=== PATIENT | male | born 1945 | race Caucasian/White ===

== ENCOUNTER 2017-10-07 15:11 | Emergency (ER) | payer MEDICARE, OTHER ==
[2017-10-07 15:44] LABS: BILIRUBIN,URINE NEGATIVE (NEG); CLARITY,URINE CLEAR; COLOR,URINE YELLOW; GLUCOSE,URINE NEGATIVE (NEG); NITRITE,URINE NEGATIVE (NEG); PROTEIN,URINE NEGATIVE (NEG-TRACE)
[2017-10-07 15:55] LABS: BACTERIA,URINE 0 /HPF (0-FEW); RBC,URINE >40 /HPF (0-2); SQUAMOUS EPITHELIAL CELL,UR FEW /LPF; WBC,URINE >40 /HPF (0-4)
[2017-10-07] MEDS: cefTRIAXone IM 1 GM VIAL IM (16:27)
== END 2017-10-07 16:45 | disposition home or self-care (01) ==
LOC: ER 16:45
DX: N39.0 Urinary tract infection, site not specified (principal); I10 Essential (primary) hypertension; E11.9 Type 2 diabetes mellitus without complications; Z88.2 Allergy status to sulfonamides
CPT/HCPCS: 81001; 96372; 99283; J0696

== ENCOUNTER 2021-09-12 11:34 | Emergency (ER) | payer MEDICARE, OTHER ==
[~2021-09-12] VITALS: Ht 177.8 cm; Wt 98.0 kg
[~2021-09-12 11:34] MED LIST: LEVO750T31 PO
--- NOTE | 2021-09-12 12:47 | RAD ---
EXAMINATION: CT LUMBAR SPINE WO. Technique: Axial images with coronal and sagittal reconstructions are performed of lumbar spine witho ut contrast. One or more of the following radiation dose reduction techniques was used: automated exposure control , adjustment of mA and/or KV according to patient size, and/or utilization of iterative reconstructio n technique. HISTORY: 76 years Male Reason: FALL, SCIATICA, BACK PAIN COMPARISON: None. FINDINGS: There is a minimal spondylolisthesis of L4 over L5. The vertebral body heights are preserved. There i s a a detached osteophyte along the right side the of the anterior aspect of the L4 vertebral body wh ich may represent a fractured osteophyte secondary to the injury. There is no associated compression fracture. The posterior elements appear to be intact. There is no other fracture identified. There is fusion of the SI joints bilaterally. There are significant sclerotic hypertrophic changes in the mid and lower lumbar spine facet joints. This is associated with multilevel bilateral foraminal stenosis of moderate to severe degree bilatera lly. There is suggestion of prior laminectomy The paraspinal soft tissues appear grossly unremarkable. IMPRESSION: 1. Detached osteophyte along the anterior aspect of the L4 vertebral upper endplate is probably acute with no lumbar spine fractures seen otherwise. 2. Severe facet joint hypertrophy at multiple levels in the lower lumbar spine with multilevel bilate ral neural foraminal stenosis.. 3. Grade 1 spondylolisthesis of L4 over L5. Electronically signed by: Zachary Malik MD (09/12/2021 12:45 PM) [id number]
--- NOTE | 2021-09-12 13:18 | RAD ---
EXAMINATION: XR RIGHT HIP (WITH OR WITHOUT PELVIS) 2 VIEWS. HISTORY: 76 years Male Reason: PAIN AFTER TBLE FELL ON IT COMPARISON: None. FINDINGS: No fracture, dislocation or radiopaque foreign body seen on the AP pelvis or right 2 views of the rig ht hip. Mild sclerotic degenerative changes at the hip joints and SI joints seen. Multiple calcifi cations projecting over the pelvis appears to represent phleboliths. Moderate amounts of fecal materi al seen in the colon and rectum. IMPRESSION: No acute process. Electronically signed by: Zachary aMlik MD (09/12/2021 1:15 PM) [id number]
--- NOTE | 2021-09-12 13:18 | RAD ---
EXAM: Left foot, 3 views. HISTORY: Blunt trauma. COMPARISON: None. FINDINGS: 3 views of the left foot are obtained. There is severe first metatarsal phalangeal joint sp clau narrowing, subchondral sclerosis, spurring and associated bony remodeling. There is no acute frac ture, dislocation or subluxation. There is calcification along the plantar fascia. There are vascular calcifications. IMPRESSION: 1. No acute osseous finding. 2. Severe first metatarsophalangeal joint osteoarthritis. 3. Plantar fascia calcification. Electronically signed by: Linda Lobato MD (09/12/2021 1:16 PM) [id number]
--- NOTE | 2021-09-12 13:46 | PHYS DOC ---
Past Medical History Past Medical History: Hypertension, Kidney Stone Past Surgical History: Cholecystectomy, Knee Replacement, Other Additional Past Surgical Histo: neck, back Smoking Status: Never Smoker Alcohol Use: None Drug Use: None General Adult EDM: Chief Complaint: MULTIPLE COMPLAINTS HPI: HPI: Patient is a 76 year old male who presents with states he is up here for summer from [place] and does not have a primary care doctor peer. He states about 2 weeks ago he fell and injured his right hip and now he is having right hip, righ t lower back pain with some sharp shooting pain down the back of the right leg. States he has been up and walking with his cane ever since. He states about a week ago he dropped a heavy wooden table on top of his left foot and he has been having pain ever since. Again he has been up and walking since this happened. He states he has been taking Tylenol for pain. He is ambulatory with a steady gait with a cane. He states he does have some frequent falls. He has a history of kidney stone, diabetes, hypertension, high cholesterol, cholecystectomy, knee surgeries bilaterally. He denies numbness or tingling, focal weakness, loss of bowel bladder, urinary symptoms, hitting his head, blood thinners, neck pain, headache, dizziness, nausea, vomiting, abdominal pain, recent illness. Review of Systems: Review of Systems: Constitutional: Denies fever or chills. [] Eyes: Denies change in visual acuity. [] HENT: Denies nasal congestion or sore throat. [] Respiratory: Denies cough or shortness of breath. [] Cardiovascular: Denies chest pain or edema. [] GI: Denies abdominal pain, nausea, vomiting, bloody stools or diarrhea. [] : Denies dysuria. [] Musculoskeletal: + Right lower back pain or + right hip joint pain. + Left foot [] Integument: Denies rash. + Left dorsal foot bruising [] Neurologic: Denies headache, focal weakness or sensory changes. [] Endocrine: Denies polyuria or polydipsia. [] Lymphatic: Denies swollen glands. [] Psychiatric: Denies depression or anxiety. [] Heart Score: C/O Chest Pain: No Allergies: Allergies: Allergies Coded Allergies Type Severity Reaction Last Updated Verified Sulfa (Sulfonamide Antibiotics) Allergy Intermediate 10/07/17 Yes Physical Exam: PE: Constitutional: Well developed, well nourished, no acute distress, non-toxic appearance. [] HENT: Normocephalic, atraumatic, bilateral external ears normal, oropharynx moist, no oral exudates, nose normal. [] Eyes: PERRLA, EOMI, conjunctiva normal, no discharge. [] Neck: Normal range of motion, no tenderness, supple, no stridor. [] Cardiovascular:Heart rate regular rhythm, no murmur [] Lungs & Thorax: Bilateral breath sounds clear to auscultation [] Abdomen: Bowel sounds normal, soft, no tenderness, no masses, no pulsatile masses. [] Skin: Warm, dry, no erythema, no rash. Left dorsal foot bruising [] Back: Lower back spinal tenderness, no CVA tenderness. [] Extremities: Left dorsal foot tenderness, no cyanosis, no clubbing, ROM intact, 1+edema. [] Neurologic: Alert and oriented X 3, normal motor function, normal sensory function, no focal deficits noted. [] Psychologic: Affect normal, judgement normal, mood normal. [] Current Patient Data: Vital Signs: Vital Signs Date Time Temp Pulse Resp B/P (MAP) Pulse Ox O2 Delivery O2 Flow Rate FiO2 09/12/21 11:50 97.8 61 16 166/81 (109) 96 Room Air 97.8 EKG: EKG: [] Radiology/Procedures: Radiology/Procedures: [] Impression: [facility] [address] [place] [address] IMAGING REPORT Signed PATIENT: SHANNA THAYER ACCOUNT: [id number] : 1945 LOCATION: ER AGE: 76 SEX: M EXAM STATUS: REG ER ORD. PHYSICIAN: ALEISHA LUCIA APRN REASON: FALL, SCIATICA, BACK PAIN PROCEDURE: CT LUMBAR SPINE WO CONTRAST EXAMINATION: CT LUMBAR SPINE WO. Technique: Axial images with coronal and sagittal reconstructions are performed of lumbar spine without contrast. One or more of the following radiation dose reduction techniques was used: automated exposure control, adjustment of mA and/or KV according to patient size, and/or utilization of iterative reconstruction technique. HISTORY: 76 years Male Reason: FALL, SCIATICA, BACK PAIN COMPARISON: None. FINDINGS: There is a minimal spondylolisthesis of L4 over L5. The vertebral body heights are preserved. There is a a detached osteophyte along the right side the of the anterior aspect of the L4 vertebral body which may represent a fractured osteophyte secondary to the injury. There is no associated compression fracture. The posterior elements appear to be intact. There is no other fracture identified. There is fusion of the SI joints bilaterally. There are significant sclerotic hypertrophic changes in the mid and lower lumbar spine facet joints. This is associated with multilevel bilateral foraminal stenosis of moderate to severe degree bilaterally. There is suggestion of prior laminectomy The paraspinal soft tissues appear grossly unremarkable. IMPRESSION: 1. Detached osteophyte along the anterior aspect of the L4 vertebral upper endplate is probably acute with no lumbar spine fractures seen otherwise. 2. Severe facet joint hypertrophy at multiple levels in the lower lumbar spine with multilevel bilateral neural foraminal stenosis.. 3. Grade 1 spondylolisthesis of L4 over L5. Electronically signed by: Mignon Malik MD (09/12/2021 12:45 PM) [id number] DICTATED and SIGNED BY: MIGNON MALIK MD DATE: 09/12/21 1230 [facility] [address] [place], [place] [id number] IMAGING REPORT Signed PATIENT: SHANNA THAYER ACCOUNT: [id number] : 1945 LOCATION: ER AGE: 76 SEX: M EXAM STATUS: REG ER ORD. PHYSICIAN: ALEISHA LUCIA APRN REASON: PAIN AFTER TBLE FELL ON IT PROCEDURE: FOOT LEFT 3V EXAM: Left foot, 3 views. HISTORY: Blunt trauma. COMPARISON: None. FINDINGS: 3 views of the left foot are obtained. There is severe first metatarsal phalangeal joint space narrowing, subchondral sclerosis, spurring and associated bony remodeling. There is no acute fracture, dislocation or subluxation. There is calcification along the plantar fascia. There are vascular calcifications. IMPRESSION: 1. No acute osseous finding. 2. Severe first metatarsophalangeal joint osteoarthritis. 3. Plantar fascia calcification. Electronically signed by: Linda Martini MD (09/12/2021 1:16 PM) [id number] DICTATED and SIGNED BY: LINDA MARTINI MD DATE: 09/12/21 1315 [facility] [address] [place] [address] IMAGING REPORT Signed PATIENT: SHANNA THAYER ACCOUNT: [id number] : 1945 LOCATION: ER AGE: 76 SEX: M EXAM STATUS: REG ER ORD. PHYSICIAN: ALEISHA LUCIA APRN REASON: PAIN AFTER TBLE FELL ON IT PROCEDURE: HIP RIGHT 2V WITH PELVIS EXAMINATION: XR RIGHT HIP (WITH OR WITHOUT PELVIS) 2 VIEWS. HISTORY: 76 years Male Reason: PAIN AFTER TBLE FELL ON IT COMPARISON: None. FINDINGS: No fracture, dislocation or radiopaque foreign body seen on the AP pelvis or right 2 views of the right hip. Mild sclerotic degenerative changes at the hip joints and SI joints seen. Multiple calcifications projecting over the pelvis appears to represent phleboliths. Moderate amounts of fecal material seen in the colon and rectum. IMPRESSION: No acute process. Electronically signed by: Mignon Malik MD (09/12/2021 1:15 PM) [id number] DICTATED and SIGNED BY: MIGNON MALIK MD DATE: 09/12/21 1313 Course & Med Decision Making: Course & Med Decision Making Pertinent Labs and Imaging studies reviewed. (See chart for details) See HPI. Alert and oriented x4. Ambulatory with a steady gait with his cane. Speaks in full clear sentences. 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 Bruising with 1+ swelling to the left dorsal foot. Low back focal bony spinal numbness. No saddle anesthesia. Skin pink warm and dry. No other signs of trauma. Pedal pulse strong present. Cap refill less than 2 seconds. Can wiggle toes. Have spoken with [facility] nurse practitioner for Dr. Patrick and states that Dr. Patrick said that the patient could follow-up with Dr. Lainez as he does not t hink that this is a surgical fracture. All other x-rays show no acute findings. Dragon Disclaimer: Dragjoanna Disclaimer: This electronic medical record was generated, in whole or in part, using a voice recognition dictation system. Departure Departure Impression: Primary Impression: Lumbar vertebral fracture Qualified Codes: S32.049A - Unspecified fracture of fourth lumbar vertebra, initial encounter for closed fracture Additional Impressions: Foot contusion Qualified Codes: S90.32XA - Contusion of left foot, initial encounter Sciatica Qualified Codes: M54.31 - Sciatica, right side Frequent falls Disposition: HOME / SELF CARE / HOMELESS Condition: STABLE Referrals: NO PCP (PCP) DANIAL LAINEZ MD Patient Instructions: Lumbar Fracture, Sciatica with [facility] Additional Instructions: Follow-up with Dr Laniez by calling the number in your paperwork tomorrow to get an appointment. He also need to find a primary care physician up here in [place] so that you have one while you are here. Continue taking all your medications as prescribed. Remember some pain medications can make you sleepy so you should not drive or use any heavy machinery while on these. You can also follow-up with a orthopedic of your choosing for your foot. Use ice and elevation to help with your foot pain. If you begin having focal weakness in 1 extremity, numbness and tingling on one side your body or loss of bowel and bladder you should return to the emergency room. Scripts Lidocaine (Lidocaine PATCH ) 1 Each Adh..patch 1 EACH TP DAILY for FOR LOCAL PAIN, #5 PATCH REMOVE AFTER 12 HOURS Prov: ALEISHA LUCIA APRN 09/12/21 Cyclobenzaprine Hcl (CYCLOBENZAPRINE HCL) 5 Mg Tablet 1 TAB PO TID for 5 Days, #15 TAB Prov: ALEISHA LUCIA MANAGER STATE 09/12/21 Ibuprofen (IBUPROFEN) 600 Mg Tablet 600 MG PO PRN Q6HRS PRN for INFLAMMATION, #25 TAB Prov: ALEISHA LUCIA MANAGER STATE 09/12/21 ALEISHA LUCIA APRN September 12, 2021 13:46
[2021-09-12] MEDS ORDERED: IBUP-1007 PO (14:52)
[2021-09-12] MEDS ORDERED: CYCL5TAB PO (14:52)
[2021-09-12] MEDS ORDERED: LIDO700A21 TP (14:52)
[2021-09-12 15:00] VITALS: BP 185/87
== END 2021-09-12 15:02 | disposition home or self-care (01) ==
LOC: ER 11:34
DX: S32.049A Unspecified fracture of fourth lumbar vertebra, initial encounter for closed fracture (principal); S90.32XA Contusion of left foot, initial encounter; M54.31 Sciatica, right side; M25.551 Pain in right hip; I10 Essential (primary) hypertension; M79.672 Pain in left foot; Z87.442 Personal history of urinary calculi; Z88.2 Allergy status to sulfonamides; W18.09XA Striking against other object with subsequent fall, initial encounter; Y93.89 Activity, other specified; Y92.89 Other specified places as the place of occurrence of the external cause; Y99.8 Other external cause status
CPT/HCPCS: 72131; 73502; 73630; 99284-25